=== PATIENT | female | born 1995 | race Caucasian/White ===

== ENCOUNTER 2017-04-19 08:59 | Emergency (ER) | payer BC, SELFPAY ==
[2017-04-19 09:27] VITALS: BP 133/76; PULSE 129; RESP 20; TEMP 38.6; O2SAT 95; BMI 36.6
--- NOTE | 2017-04-19 09:41 | HMH.EDUTC ---
[facility] [place] Impression: Influenza, Fever in adult Disposition: Home, Self-Care Condition on Discharge: Good Instructions: Influenza, DI for Fever (Symptom) -- Adult Additional Instructions: ? Start Tamiflu today if you are going to take it. Discussed risk and possible benefits. ? Lots of rest ? Increase Fluids water, Gatorade, powerade, pedialyte,if infant/toddler/child ? Alternate Tylenol and / or ibuprofen as discussed for fever, aches, chills x 24 hours without medication for symptoms ? Follow up IMMEDIATELY for new or worsening Symptoms OR no noticeable improvement over the next 48-72 hours, 911 for difficulty or breathing ? You or your child area contagious until no fever, aches, chills for 24 hours with medication for symptoms Prescriptions: Oseltamivir Phosphate [Tamiflu 75mg Capsule] 75 mg PO BID #10 cap Referrals: Dieter Rodriguez MD [Primary Care Provider] - Forms: Work/School Release Medical Decision Making Vital Signs: 04/19/17 09:27 Temperature 101.5 F H Temperature Source Temporal Artery Scan Pulse Rate [Right Brachial] 129 H Respiratory Rate 20 Blood Pressure [Right Arm] 133/76 Blood Pressure Mean [Right Arm] 95 Blood Pressure Source [Right Arm] Automatic Cuff Blood Pressure Position [Right Arm] Sitting 02 Sat by Pulse Oximetry 95 Oxygen Delivery Method Room Air - Lab Data Lab Results 04/19/17 09:14: Influenza Type A Ag Positive A, Influenza Type B Ag Negative, Strep Scn Rapid Clinic Negative Orders (Tests/Meds): ED MEDICATIONS Discontinued Medications Generic Name Dose Route Start Last Admin Trade Name Vetoq PRN Reason Stop Dose Admin Acetaminophen 650 mg 04/19/17 10:00 Acetaminophen 325mg Tab PO 04/19/17 10:01 ONCE ONE Ibuprofen 600 mg 04/19/17 09:35 04/19/17 09:57 Motrin 600mg Tablet PO 04/19/17 09:36 600 mg ONCE ONE Administration ORDERS Category Date Time Status Strep Screen Confirmation Stat Micro 04/19/17 09:14 Received - Adriel Inquiry Pt receiving controlled substance: No Adriel was queried for this patient: No - Reevaluation(s) Time: 10:05 (Patient temp still elevated after given Motrin Patient given Tylenol will re-evaluate) [facility] [place] - General Stated complaint: possible flu Mode of Arrival: Ambulatory Source of Information: Patient Limitations: No Limitations Description of Symptoms (Recalled from Triage Doc. by RN): PT C/O COUGH, CONGESTION, FEVER, BODYACHES, CHILLS HEENT Symptoms (Recalled from RN notes): No Resp Symptoms (Recalled from RN notes): Yes (COUGH AND CONGESTION) Skin Symptoms (Recalled from RN notes): No MS Symptoms (Recalled from RN notes): Yes (BODYACHES) Functional Status (Recalled from RN notes): N/A - History of Present Illness Provider Complaint: Patient state that she began having flu like symptoms yesterday State that she has been having body aches, fever, chills sore throat and over all not feeling well State that this morning she woke up and she felt worse so she came on in to get checked out - Related Data Home Medications Medication Instructions Recorded Confirmed Sertraline HCl [Zoloft 50mg tablet] 50 mg PO DAILY 04/19/17 04/19/17 Previous Rx's Medication Instructions Recorded Oseltamivir Phosphate [Tamiflu 75 mg PO BID #10 cap 04/19/17 75mg Capsule] Allergies Allergy/AdvReac Type Severity Reaction Status Date / Time No Known Allergies Allergy Verified 04/19/17 09:34 - Worker's Comp Is this a Worker's Comp case?: No [facility] History I have reviewed the patient's past medical history: Yes Other Surgeries: Yes: Other (wisdom teeth removed) - *Social History Smoking Status: Never smoker Alcohol Intake: never - Psychiatric History Expresses thoughts of harming self/others: None Suicide Plan Description: No Plan ROS Obtained: Yes All systems reviewed & no additional complaints - Constitutional Constitutional: Reports body ache, Reports c
--- NOTE | 2017-04-19 09:44 | ED_ITS ---
[facility] [place]: Influenza, Fever in adult Disposition: Home, Self-Care Condition on Discharge: Good Instructions: Influenza, DI for Fever (Symptom) -- Adult Additional Instructions: ? Start Tamiflu today if you are going to take it. Discussed risk and possible benefits. ? Lots of rest ? Increase Fluids water, Gatorade, powerade, pedialyte,if infant/toddler/child ? Alternate Tylenol and / or ibuprofen as discussed for fever, aches, chills x 24 hours without medication for symptoms ? Follow up IMMEDIATELY for new or worsening Symptoms OR no noticeable improvement over the next 48-72 hours, 911 for difficulty or breathing ? You or your child area contagious until no fever, aches, chills for 24 hours with medication for symptoms Prescriptions: Oseltamivir Phosphate [Tamiflu 75mg Capsule] 75 mg PO BID #10 cap Referrals: Dieter Rodriguez MD [Primary Care Provider] - Forms: Work/School Release Medical Decision Making Vital Signs: 04/19/17 09:27 Temperature 101.5 F H Temperature Source Temporal Artery Scan Pulse Rate [Right Brachial] 129 H Respiratory Rate 20 Blood Pressure [Right Arm] 133/76 Blood Pressure Mean [Right Arm] 95 Blood Pressure Source [Right Arm] Automatic Cuff Blood Pressure Position [Right Arm] Sitting 02 Sat by Pulse Oximetry 95 Oxygen Delivery Method Room Air - Lab Data Lab Results 04/19/17 09:14: Influenza Type A Ag Positive A, Influenza Type B Ag Negative, Strep Scn Rapid Clinic Negative Orders (Tests/Meds): ED MEDICATIONS Discontinued Medications Generic Name Dose Route Start Last Admin Trade Name Vetoq PRN Reason Stop Dose Admin Acetaminophen 650 mg 04/19/17 10:00 Acetaminophen 325mg Tab PO 04/19/17 10:01 ONCE ONE Ibuprofen 600 mg 04/19/17 09:35 04/19/17 09:57 Motrin 600mg Tablet PO 04/19/17 09:36 600 mg ONCE ONE Administration ORDERS Category Date Time Status Strep Screen Confirmation Stat Micro 04/19/17 09:14 Received - Adriel Inquiry Pt receiving controlled substance: No Adriel was queried for this patient: No - Reevaluation(s) Time: 10:05 (Patient temp still elevated after given Motrin Patient given Tylenol will re-evaluate) [facility] [place] - General Stated complaint: possible flu Mode of Arrival: Ambulatory Source of Information: Patient Limitations: No Limitations Description of Symptoms (Recalled from Triage Doc. by RN): PT C/O COUGH, CONGESTION, FEVER, BODYACHES, CHILLS HEENT Symptoms (Recalled from RN notes): No Resp Symptoms (Recalled from RN notes): Yes (COUGH AND CONGESTION) Skin Symptoms (Recalled from RN notes): No MS Symptoms (Recalled from RN notes): Yes (BODYACHES) Functional Status (Recalled from RN notes): N/A - History of Present Illness Provider Complaint: Patient state that she began having flu like symptoms yesterday State that she has been having body aches, fever, chills sore throat and over all not feeling well State that this morning she woke up and she felt worse so she came on in to get checked out - Related Data Home Medications Medication Instructions Recorded Confirmed Sertraline HCl [Zoloft 50mg tablet] 50 mg PO DAILY 04/19/17 04/19/17 Previous Rx's Medication Instructions Recorded Oseltam
[2017-04-19 09:45] LABS: UTC Influenza A Antigen Positive (Negative); UTC Influenza B Antigen Negative (Negative); UTC Strep Screen (Rapid) Negative (Negative)
== END 2017-04-19 10:18 | disposition home or self-care (01) ==
PROVIDERS: Emergency Provider Nurse Practitioner; PCP Family Medicine
DX: J10.1 Influenza due to other identified influenza virus with other respiratory manifestations (principal)
CPT/HCPCS: 87804; 87880; 99202

== ENCOUNTER 2017-06-20 08:03 | Emergency (ER) | payer BC, SELFPAY ==
[2017-06-20 08:04] VITALS: BP 161/86; PULSE 100; RESP 18; TEMP 36.8; O2SAT 97; BMI 37.8
--- NOTE | 2017-06-20 08:22 | HMH.EDGENADL ---
ED Disposition Clinical Impression: Cholecystitis with cholelithiasis Qualifiers: Cholelithiasis location: gallbladder Cholecystitis acuity: acute Biliary obstruction: without biliary obstruction Qualified Code(s): K80.00 - Calculus of gallbladder with acute cholecystitis without obstruction Disposition: Home, Self-Care Condition on Discharge: Good Instructions: Fat-Restricted Diet, DI for General Gallbladder Conditions Additional Instructions: Additional instructions for CONTROLLED SUBSTANCES: You have been prescribed a medication that is a controlled substance. Controlled substances include pain medications known as opiates and sedative nerve medications known as benzodiazepines. Some common opiates include: Codeine (such as Tylenol #3) Hydrocodone (Vicodin, Lortab, Lorcet, Republic) Oxycodone (Percocet, Percodan, Oxycodone, Oxy IR) Some common benzodiazepines include: Diazepam (Valium) Lorazepam (Ativan) Alprazolam (Xanax) Clonazepam (Klonopin) Oxazepam (Serax) All of these controlled substances are highly addictive and frequently abused. Misuse can and frequently does lead to addiction as well as overdose and . Medication should be stored in a locked cabinet or other secure storage unit. Do not store the medication in a motor vehicle. Short term supplies, 3 days or less, are prescribed because of the highly addictive nature of the medication. Any of the controlled substance medication NOT taken should be disposed of properly and NOT SAVED. The recommended method of disposing of unused medications is: Place the medicines in a sealable plastic bag. If the medicine is a solid, crush it or add water to dissolve it. Add something undesirable (cat litter, coffee grounds, etc.) Dispose of sealed bag in household trash Do not flush or pour unused medicines down a sink or drain. Controlled substances should not be shared, given away or sold. Because of the addictive nature and frequent abuse, these medications are sometimes stolen. These medications should be kept in a safe place where they cannot be stolen. Do not keep them in your car or purse. Lost or stolen prescriptions for controlled substances WILL NOT BE REFILLED in this emergency department, regardless of whether a police report was filed. Prescriptions: Hydrocod/Acet 5/325 mg [Republic 5/325mg tablet] 1 tab PO Q6HP PRN #10 tab PRN Reason: Pain levoFLOXacin [Levaquin 500mg tab] 500 mg PO DAILY #10 tab Referrals: Dieter Rodriguez MD [Primary Care Provider] - Raudel Alexandre MD [Staff Physician] - (tomorrow at 10 am, call today to confirm) - Critical Care Critical Care Time: No Attestation: On 06/20/17, the high probability of a clinically significant, sudden or life threatening deterioration of the following system(s) required my full and direct attention, intervention and personal management. The time I documented below is in addition to time spent performing reported procedures but includes the following listed in this critical care notation. Medical Decision Making - Adriel Inquiry Pt receiving controlled substance: Yes Adriel was queried for this patient: Yes Reference #:: [id number] Risks and benefits of using a controlled substance: were discussed with pt by me Comment: 0 rxs. Vital Signs: 06/20/17 08:04 Temperature 98.3 F Temperature Source Oral Pulse Rate [Right Brachial] 100 H Respiratory Rate 18 Blood Pressure [Right Arm] 161/86 Blood Pressure Mean [Right Arm] 111 Blood Pressure Source [Right Arm] Automatic Cuff Blood Pressure Position [Right Arm] Sitting 02 Sat by Pulse Oximetry 97 Oxygen Delivery Method Room Air - Lab Data Lab Results 06/20/17 08:35: Urine Color Yellow, Urine Appearance Sl cloudy, Urine pH 5.5, Ur Specific [place] >= 1.030, Urine Protein Negative, Urine Glucose (UA) Negative, Urine Ketones Negative, Urine Blood Trace-l, Urine Nitrate Negative, Urine Bilirubin Negative, Urine Urobilinogen 0.2, Ur L
--- NOTE | 2017-06-20 08:32 | CT_ITS ---
CT abdomen pelvis w con Ordering Physician: Pedro Cunningham MD Patient Age: 22 years: Female HISTORY: ITS.REASON: abdo pain Abdominal pain. Right upper quadrant pain. TECHNIQUE: Helical CT scanning of abdomen and pelvis following 35 cc [id number]. COMPARISON :Subsequent ultrasound FINDINGS Lung bases appear clear. The heart is normal in size. Abdomen. Liver, unremarkable. No biliary ductal dilatation Cholelithiasis. A 9 mm more densely calcified stone at the fundus of gallbladder. Numerous other smaller partially calcified stones and debris elsewhere at dependent gallbladder fundus of gallbladder. . Gallbladder is moderately distended 8.5 seem in length with with borderline wall thickening and question some very subtle hazy appearance thickness medial the gallbladder. Question reflecting early inflammation, early acute cholecystitis possibly. Pancreas. Normal size no focal lesions. No biliary ductal dilatation. Common duct normal diameter Kidneys. Normal enhancement. . Spleen. Borderline splenmegaly a nearly 13 cm AP and in length. Small bowel. Unremarkable. Large bowel. Minimal stool of stool most notable right colon. Terminal ileum unremarkable. Appendix normal. Pelvis. Uterus normal size but with generous endometrial stripe noted. Ovaries appear normal in size with right slightly larger than left.q nearly 4 cm maximum height x 1.8 cm. Osseous. Calcified posterior central disc bulge at T 11/12 incidentally noted. No osseous lesions. ====IMPRESSION====== 1. cholelithiasis. Numerous gallstones and debris is seen towards fundus. Borderline wall thickening. Gallbladder mildly dilated with. Question minor hazy appearance is medial the gallbladder could reflect some early inflammation equivocal: 2. Borderline/mild splenomegaly.
--- NOTE | 2017-06-20 08:33 | US_ITS ---
US gallbladder Ordering Physician: Pedro Cunningham MD Patient Age: 22 years: Female HISTORY: ITS.REASON: RUQ pain epigastric pain TECHNIQUE: Ultrasound right upper quadrant COMPARISON :CT from today FINDINGS Pancreas. Unremarkable. Head body and medial tail satisfactory. Liver. No focal lesion. No biliary ductal dilatation. Common duct appears normal diameter at the hilum of the liver. 3.7 mm. No intrahepatic ductal dilatation Gallbladder. Numerous shadowing gallstones. Prominent debris and sludge as well.. These are most evident towards the fundus the gallbladder. Gallbladder wall appears normal thickness by ultrasound. No pericholecystic fluid nor inflammation evident by ultrasound.. Gallbladder is is mildly distended but not tense, measuring 9 cm in length x 4 cm.. Right kidney. Unremarkable 11.3 similar length no hydronephrosis nor mass. IMPRESSION: 1. . Cholelithiasis. Numerous stones. Prominent sludge and debris . Gallbladder dilated somewhat distended measuring over 9.2 cm in length. However no significant wall thickening or additional inflammation evident by ultrasound 2. Common duct normal diameter.. 3.. Liver satisfactory with no intrahepatic ductal dilatation
--- NOTE | 2017-06-20 08:44 | PC.NURSE ---
notified rad of new orders
[2017-06-20 08:46] LABS: Microscopic, Urine URINE MICROSCOPIC (MICROSCOPIC)
[2017-06-20 08:52] LABS: Basophils % 0.2 % (0.1-2.0); Eosinophils # 0.1 K/mm3 (0.0-0.4); Eosinophils % 1.2 % (0.1-12.0); Hematocrit 44.2 % (37.0-47.0); Hemoglobin 14.5 g/dL (12.2-16.2); Lymphocytes # 1.8 K/mm3 (0.7-4.5); Lymphocytes % 16.1 K/mm3 (10-50); Mean Corpuscular HGB Conc 32.9 g/dL (31.8-35.4); Mean Corpuscular Hemoglobin 27.4 pg (27.0-31.2); Mean Corpuscular Volume 83.5 fl (81-99); Mean Platelet Volume 8.5 fl (7.4-10.4); Monocytes # 0.6 K/mm3 (0.1-1.0); Monocytes % 5.4 % (1.7-9.3); Neutrophils # 8.7 K/mm3 (1.8-7.8); Neutrophils % 77.1 % (37.0-80.0); Platelet Count 224 K/mm3 (142-424); Red Blood Count 5.29 M/mm3 (4.20-5.40); Red Cell Distribution Width 12.9 % (11.5-17.5); White Blood Count 11.3 K/mm3 (4.8-10.8)
[2017-06-20 08:53] LABS: Appearance,Urine SL CLOUDY (Clear); Blood, Urine TRACE-L (Negative); Color,Urine YELLOW (Yellow); Glucose,Urine (UA) Negative (Negative); Ketones,Urine Negative (Negative); Leukocyte Esterase,Urine Negative (Negative); Nitrate,Urine Negative (Negative); PH,Urine 5.5 (5.0-8.5); Protein,Urine Negative (Negative); Specific Gravity, Urine >= 1.030 (1.005-1.030); Urobilinogen,Urine 0.2 EU/dl (0.2)
[2017-06-20 09:01] LABS: Bilirubin,Urine Negative (Negative)
[2017-06-20 09:06] LABS: Alanine Aminotransferase 24 U/L (12-78); Albumin Level 4.1 gm/dL (3.4-5.0); Alkaline Phosphatase 63 U/L (46-116); Anion Gap 13.7 mEq/L (5-15); Aspartate Amino Transferase 10 U/L (15-37); Bilirubin,Total 0.4 mg/dL (0.2-1.0); Blood Urea Nitrogen 7 mg/dL (7-18); Carbon Dioxide 25 mmol/L (21.0-32.0); Chloride 105 mmol/L (98-107); Creatinine Clearance Estimated 186 mL/min (0-300); Creatinine,Serum 0.74 mg/dL (0.55-1.02); Estimated Glomerular Filt Rate 97 ml/min (>60); GFR (African American) 118 ML/MIN (>60); Globulin 4.1 gm/dl (1.3-3.2); Glucose 109 mg/dL (74-106); Potassium 3.7 mmoL/L (3.5-5.1); Sodium 140 mmol/L (136-145); Total Protein,Serum 8.2 gm/dL (6.4-8.2)
[2017-06-20 09:09] LABS: Bacteria,Urine 1+ /lpf; Mucus,Urine 1+ /lpf; RBC,Urine Occasional #/hpf (0-3); Squamous Epithelial Cell,Urine 20-50 #/hpf (0-5); Urine Pregnancy, HCG Qual. Negative (Negative)
[2017-06-20 09:14] LABS: Lipase 73 u/L (73-393)
[2017-06-20 10:34] VITALS: BP 139/85; PULSE 84; RESP 18; O2SAT 98
[2017-06-20 12:14] VITALS: BP 129/74; PULSE 67; RESP 18; TEMP 36.8; O2SAT 97
== END 2017-06-20 12:18 | disposition home or self-care (01) ==
PROVIDERS: Emergency Provider Emergency Medicine; PCP Family Medicine
DX: K80.00 Calculus of gallbladder with acute cholecystitis without obstruction (principal); R10.13 Epigastric pain; R19.7 Diarrhea, unspecified
CPT/HCPCS: 74177; 76705; 80053; 81001; 81025; 83690; 85025; 96365; 96366; 96374; 96375; 99283; J1956; Q9967

== ENCOUNTER 2017-06-26 09:06 | Day surgery (SDC) | payer BC, SELFPAY ==
[2017-06-21 14:13] VITALS: BMI 37.8
[2017-06-26] VITALS (9 sets, daily range): BP systolic 101–140; BP diastolic 41–84; PULSE 69–103; RESP 16–20; TEMP 36.3–43; O2SAT 93–99
--- NOTE | 2017-06-26 09:42 | HMH.ANESCL ---
[facility] Anesthesia Checklist - Patient Identification Patient Identification: Arm Band, Verbal (Name & ) - Structural Data Admitted From: Home Planned Operative Procedure/s: lap choly Consent for Planned Operative Procedure(s) Verified: Yes Verified Documents: Surgical Consent, History and Physical - NPO Status Verified Time NPO: 00:00 - Chart Verification Results Verified: CBC, BMP - Additional verifications Patient : No Anesthesia Reactions: No Hx Blood Transfusions: No Blood Transfusion Reaction: No Cephalosporin Allergy: No Previous Colonoscopy: No - Cardiovascular Assessment Heart Sounds: S1 & S2 Pulse Strength: Baseline Pulse Rhythm: Regular Peripheral Edema: No - Airway Assessment C-Spine Mobility Assessed: Yes TMJ Mobility Assessed: Yes Dentition: Good Dentition - Neurological Assessment Level of Consciousness: Awake, Alert, Appropriate Hx Seizures: No Numbness or tingling in extremities: No - Anesthesia Plan Anesthesia Risk discussed: Yes Anesthesia Plan: Verified ASA Class: I Anesthesia Type: General [facility] Anesthesia HX I have reviewed the patient's past medical history: Yes Medical History: Reports:: Anxiety Denies:: Cancer, Diabetes Mellitus Type 1, Diabetes Mellitus Type 2, MRSA, Seizures Other Medical History: Denies: Blood Transfusion Reaction Other Surgeries: Yes: No Previous Surgery, Other Amputation: No Fractures: No *Family Hx:: Cancer, Heart Attack, Hyperlipidemia, Hypertension
--- NOTE | 2017-06-26 12:36 | HMH.OPNOTE ---
Date of procedure: 06/26/17 Pre-op Diagnosis:: Symptomatic gallstones, cholecystitis with cholelithiasis. Post-op Diagnosis:: Same Procedure performed:: Laparoscopic cholecystectomy Surgeon:: Raudel Alexandre MD FEED MANAGER:: Marino Ayon Anesthesia: SUZIE Estimated blood loss (mL): 75 Clinical Note:: Patient is a 22-year-old white female who had presented to the office last week with a 6 day history of intermittent epigastric and right upper quadrant pain with some associated low-grade fevers. She had not had any nausea. Symptoms were not related to any food intake. She presented to the emergency department the day before seen in the office blood work at that time was relatively unremarkable. CT scan revealed findings of gallstones with sludge. The options were discussed with the patient. It was felt that most assuredly her symptoms are secondary to gallbladder. Surgery was offered as early as the following morning however due to the patient's schedule she elected for surgery the following week. Operative findings:: Patient had a markedly thickened significantly inflamed tense gallbladder with apparent stone impacted at the junction of the neck of the bladder and proximal cystic duct of the gallbladder. She had a hydropic gallbladder. Gallbladder was partially intrahepatic. Operative note:: Consent was obtained and patient was taken the operating room. She was given antibiotics. She was positioned in the supine position and general anesthesia was used via endotracheal tube. Abdomen was prepped and draped in the standard surgical fashion. Subumbilical skin incision was made. Attempt was made for achievement of CO2 pneumoperitoneum by inserting Veress needle however good insufflation pressures could not be achieved. After several unsuccessful passes of the Veress needle through a 1 mm left subcostal incision Veress needle was inserted. CO2 pneumoperitoneum was achieved 15 mmHg. 10/11 mm optical trocar was inserted at the umbilicus. Intraperitoneal contents were visualized. She was positioned in reverse Trendelenburg and left side down. A couple of 5 mm trochars were inserted in the right upper abdomen. 10 mm trocar was inserted in the epigastrium. Gallbladder was identified to be distended and tense. It was grasped and retracted anteriorly and superiorly over the dome of the liver. For visualization 0? laparoscope was replaced with the angled laparoscope. There appeared to be significant inflammatory response around the neck of the gallbladder. Blunt dissection was carried out and there appeared to be a stone impacted at the neck of the gallbladder where it tapers into the cystic duct. Ultimately the cystic duct was dissected free and isolated. Cystic duct was multiply clipped and then divided. Cystic artery was coagulated with Scott ultrasonic harmonic sierra and divided. Gallbladder was dissected free from the liver in a retrograde fashion using Scott ultrasonic harmonic sierra. Gallbladder was partially intrahepatic and there was some minor parenchymal trauma to the liver. Gallbladder was placed within an Endo Catch retrieval device removed from the peritoneal cavity via the umbilical trocar site which required some extension of the fascial incision for delivery. Gallbladder fossa was then irrigated. Hemostasis was achieved with moderately liberal use of electrocautery on the gallbladder fossa. There is good hemostasis. Gallbladder fossa and perihepatic space were irrigated and aspirated until clear with several liters of warm saline. Trochars were then removed as CO2 pneumoperitoneum was evacuated. Fascia at the umbilicus was closed with a couple of interrupted 0 Vicryl sutures. Local anesthetic was infiltrated. Skin incisions were closed with 4-0 Monocryl in a subcuticular fashion. Steri-Strips and clean dry sterile dressings were applied. Condition: stable Disposition: PACU Specimens:: Gallbladder and contents Compli
--- NOTE | 2017-06-26 12:42 | P.OP_ITS ---
Date of procedure: 06/26/17 Pre-op Diagnosis:: Symptomatic gallstones, cholecystitis with cholelithiasis. Post-op Diagnosis:: Same Procedure performed:: Laparoscopic cholecystectomy Surgeon:: Raudel Alexandre MD COMBAT RIFLE CREWMEMBER:: Marino Ayon Anesthesia: SUZIE Estimated blood loss (mL): 75 Clinical Note:: Patient is a 22-year-old white female who had presented to the office last week with a 6 day history of intermittent epigastric and right upper quadrant pain with some associated low-grade fevers. She had not had any nausea. Symptoms were not related to any food intake. She presented to the emergency department the day before seen in the office blood work at that time was relatively unremarkable. CT scan revealed findings of gallstones with sludge. The options were discussed with the patient. It was felt that most assuredly her symptoms are secondary to gallbladder. Surgery was offered as early as the following morning however due to the patient's schedule she elected for surgery the following week. Operative findings:: Patient had a markedly thickened significantly inflamed tense gallbladder with apparent stone impacted at the junction of the neck of the bladder and proximal cystic duct of the gallbladder. She had a hydropic gallbladder. Gallbladder was partially intrahepatic. Operative note:: Consent was obtained and patient was taken the operating room. She was given antibiotics. She was positioned in the supine position and general anesthesia was used via endotracheal tube. Abdomen was prepped and draped in the standard surgical fashion. Subumbilical skin incision was made. Attempt was made for achievement of CO2 pneumoperitoneum by inserting Veress needle however good insufflation pressures could not be achieved. After several unsuccessful passes of the Veress needle through a 1 mm left subcostal incision Veress needle was inserted. CO2 pneumoperitoneum was achieved 15 mmHg. 10/11 mm optical trocar was inserted at the umbilicus. Intraperitoneal contents were visualized. She was positioned in reverse Trendelenburg and left side down. A couple of 5 mm trochars were inserted in the right upper abdomen. 10 mm trocar was inserted in the epigastrium. Gallbladder was identified to be distended and tense. It was grasped and retracted anteriorly and superiorly over the dome of the liver. For visualization 0? laparoscope was replaced with the angled laparoscope. There appeared to be significant inflammatory response around the neck of the gallbladder. Blunt dissection was carried out and there appeared to be a stone impacted at the neck of the gallbladder where it tapers into the cystic duct. Ultimately the cystic duct was dissected free and isolated. Cystic duct was multiply clipped and then divided. Cystic artery was coagulated with Scott ultrasonic harmonic sierra and divided. Gallbladder was dissected free from the liver in a retrograde fashion using Scott ultrasonic harmonic sierra. Gallbladder was partially intrahepatic and there was some minor parenchymal trauma to the liver. Gallbladder was placed within an Endo Catch retrieval device removed from the peritoneal cavity via the umbilical trocar site which required some extension of the fascial incision for delivery. Gallbladder fossa was then irrigated. Hemostasis was achieved with moderately liberal use of electrocautery on the gallbladder fossa. There is good hemostasis. Gallbladder fossa and perihepatic space were irrigated and aspirated until clear with several liters of warm saline. Trochars were then removed as CO2 pneumoperitoneum was evacuated. Fascia at the umbilicus was closed with a couple of interrupted 0 Vicryl sutures. Local anesth
--- NOTE | 2017-06-26 12:43 | P.PN_ITS ---
[facility] Anesthesia Record Part I Intake, IV Amount: 800 Estimated blood loss (mL): 25 Urine output (mL): 0 Blood Products used (#): none Blood Pressure: 138/72 SaO2: 93 Pulse Rate: 103 Respiratory Rate: 18 Temperature: 97.8 F Patient is:: Drowsy, Stable Stable to PACU at:: 12:42
--- NOTE | 2017-06-26 12:43 | HMH.ANESII ---
[facility] Anesthesia Record Part II Discharge Time: 13:12 Destination: Surgical Day Care (OP Surgery) PACU nurse assessment reviewed?: Yes Patient Condition:: Good Anesthesia Complications:: None
--- NOTE | 2017-06-26 13:18 | PC.NURSE ---
1310-detailed report called to DanielaRN 1312-Pt transported to post op via stretcher w/rails up and left in care of ABNER Roger. Detailed report given at bedside. VSS. Pt stable.
== END 2017-06-26 13:57 | disposition home or self-care (01) ==
PROVIDERS: PCP Family Medicine; Visit Provider Surgery
PROC: 0FT44ZZ Resection of Gallbladder, Percutaneous Endoscopic Approach (ICD-10-PCS; CPT 47562; principal; 2017-06-26 11:00)
DX: K80.01 Calculus of gallbladder with acute cholecystitis with obstruction (principal)
CPT/HCPCS: 47562; 96374; J0131; J2405; J2710

== ENCOUNTER → 2017-10-19 10:52 | Outpatient (CLI) | payer BC, SELFPAY ==
[2017-10-19 11:30] LABS: Basophils % 0.3 % (0.1-2.0); Eosinophils # 0.2 K/mm3 (0.0-0.4); Eosinophils % 1.9 % (0.1-12.0); Hematocrit 42.9 % (37.0-47.0); Hemoglobin 13.1 g/dL (12.2-16.2); Lymphocytes # 1.8 K/mm3 (0.7-4.5); Lymphocytes % 21.4 K/mm3 (10-50); Mean Corpuscular HGB Conc 30.5 g/dL (31.8-35.4); Mean Corpuscular Hemoglobin 25.9 pg (27.0-31.2); Mean Corpuscular Volume 84.9 fl (81-99); Mean Platelet Volume 8.9 fl (7.4-10.4); Monocytes # 0.5 K/mm3 (0.1-1.0); Monocytes % 5.3 % (1.7-9.3); Neutrophils % 71.1 % (37.0-80.0); Platelet Count 220 K/mm3 (142-424); Red Blood Count 5.06 M/mm3 (4.20-5.40); Red Cell Distribution Width 13.4 % (11.5-17.5); White Blood Count 8.5 K/mm3 (4.8-10.8)
[2017-10-19 13:22] LABS: Alanine Aminotransferase 36 U/L (12-78); Albumin Level 3.7 gm/dL (3.4-5.0); Albumin/Globulin Ratio 1.2 (1.1-1.8); Alkaline Phosphatase 55 U/L (46-116); Anion Gap 15.1 mEq/L (5-15); Aspartate Amino Transferase 19 U/L (15-37); Bilirubin,Total 0.4 mg/dL (0.2-1.0); Blood Urea Nitrogen 7 mg/dL (7-18); Calcium 9.2 mg/dL (8.5-10.1); Carbon Dioxide 23 mmol/L (21.0-32.0); Chloride 108 mmol/L (98-107); Creatinine,Serum 0.66 mg/dL (0.55-1.02); Estimated Glomerular Filt Rate 111 ml/min (>60); GFR (African American) 134 ML/MIN (>60); Globulin 3.2 gm/dl (1.3-3.2); Glucose 99 mg/dL (74-106); HCG,Quantitative 1660 mIU/mL; Potassium 4.1 mmoL/L (3.5-5.1); Sodium 142 mmol/L (136-145); Total Protein,Serum 6.9 gm/dL (6.4-8.2)
== END ==
PROVIDERS: Visit Provider Specialist
DX: O00.119 Unspecified tubal pregnancy with intrauterine pregnancy (principal)
CPT/HCPCS: 36415; 80053; 84702; 85025

== ENCOUNTER → 2017-10-26 11:07 | Outpatient (CLI) | payer BC, SELFPAY ==
[2017-10-26 12:09] LABS: HCG,Quantitative 1675 mIU/mL
== END ==
PROVIDERS: Visit Provider Specialist
DX: O00.90 Unspecified ectopic pregnancy without intrauterine pregnancy (principal)
CPT/HCPCS: 36415; 84702

== ENCOUNTER → 2017-11-06 09:29 | Outpatient (CLI) | payer BC, SELFPAY ==
[2017-11-06 09:56] LABS: HCG,Quantitative 29 mIU/mL
== END ==
PROVIDERS: Visit Provider Specialist
DX: Z32.00 Encounter for pregnancy test, result unknown (principal)
CPT/HCPCS: 36415; 84702

== ENCOUNTER → 2017-11-24 13:51 | Outpatient (CLI) | payer BC, SELFPAY ==
[2017-11-24 14:50] LABS: HCG,Quantitative 0 mIU/mL
== END ==
PROVIDERS: Visit Provider Specialist
DX: Z32.00 Encounter for pregnancy test, result unknown (principal); O00.109 Unspecified tubal pregnancy without intrauterine pregnancy
CPT/HCPCS: 36415; 84702

== ENCOUNTER → 2017-12-04 12:11 | Outpatient (CLI) | payer BC, SELFPAY ==
[2017-12-04 12:51] LABS: HCG,Quantitative 0 mIU/mL
== END ==
PROVIDERS: PCP Nurse Practitioner; Visit Provider Specialist
DX: Z32.00 Encounter for pregnancy test, result unknown (principal)
CPT/HCPCS: 36415; 84702

== ENCOUNTER → 2018-02-02 08:54 | Outpatient (CLI) | payer BC, SELFPAY ==
[2018-02-02 11:33] LABS: HCG,Quantitative 0 mIU/mL
== END ==
PROVIDERS: PCP Family Medicine; Visit Provider Specialist
DX: Z32.00 Encounter for pregnancy test, result unknown (principal)
CPT/HCPCS: 36415; 84702

== ENCOUNTER → 2018-07-20 09:48 | Outpatient (CLI) | payer BC, SELFPAY ==
[2018-07-20 10:41] LABS: HCG,Quantitative 16 mIU/mL
== END ==
PROVIDERS: Visit Provider Specialist
DX: Z32.00 Encounter for pregnancy test, result unknown (principal)
CPT/HCPCS: 36415; 84702

== ENCOUNTER → 2018-07-24 11:56 | Outpatient (CLI) | payer BC, SELFPAY ==
[2018-07-24 12:21] LABS: HCG,Quantitative 173 mIU/mL
== END ==
PROVIDERS: Visit Provider Specialist
DX: Z32.00 Encounter for pregnancy test, result unknown (principal)
CPT/HCPCS: 36415; 84702

== ENCOUNTER → 2018-07-30 13:58 | Outpatient (CLI) | payer BC, SELFPAY ==
[2018-07-30 15:21] LABS: HCG,Quantitative 2318 mIU/mL
== END ==
PROVIDERS: Visit Provider Specialist
DX: Z32.00 Encounter for pregnancy test, result unknown (principal)
CPT/HCPCS: 36415; 84702

== ENCOUNTER 2019-03-26 22:45 | Inpatient (IN) ==
[2019-03-26 23:10] LABS: Microscopic, Urine URINE MICROSCOPIC (MICROSCOPIC)
[2019-03-26 23:13] LABS: Appearance,Urine CLEAR (Clear); Bilirubin,Urine Negative (Negative); Blood, Urine 3+ (Negative); Color,Urine YELLOW (Yellow); Glucose,Urine (UA) Negative (Negative); Ketones,Urine Negative (Negative); Leukocyte Esterase,Urine Negative (Negative); PH,Urine 6.5 (5.0-8.5); Protein,Urine Negative (Negative); Specific Gravity, Urine 1.015 (1.005-1.030); Urobilinogen,Urine 0.2 EU/dl (0.2)
[2019-03-26 23:19] LABS: Amphetamine/Metha Screen,Urine Negative ng/mL (<1000); Barbiturates Screen,Urine Negative ng/mL (<200); Benzodiazepines Screen,Urine Negative ng/mL (<200); Cannabinoid Screen,Urine Negative ng/mL (<50); Cocaine Screen,Urine Negative ng/mL (<300); Methadone Screen,Urine Negative ng/mL (<300); Opiate Screen,Urine Negative ng/mL (<300); Phencyclidine Screen,Urine Negative ng/mL (<25)
[2019-03-26 23:33] LABS: Bacteria,Urine Trace /lpf; WBC,Urine Occasional #/hpf (0-3)
[2019-03-27 06:48] LABS: Basophils % 0.1 % (0.1-2.0); Eosinophils % 0.2 % (0.1-12.0); Hematocrit 36.7 % (37.0-47.0); Lymphocytes # 1.2 K/mm3 (0.7-4.5); Mean Corpuscular HGB Conc 35.5 g/dL (31.8-35.4); Mean Corpuscular Volume 83.1 fl (81-99); Mean Platelet Volume 10.2 fl (7.4-10.4); Monocytes # 0.5 K/mm3 (0.1-1.0); Monocytes % 3.9 % (1.7-9.3); Neutrophils # 11.4 K/mm3 (1.8-7.8); Neutrophils % 86.8 % (37.0-80.0); Platelet Count 175 K/mm3 (142-424); Red Blood Count 4.41 M/mm3 (4.20-5.40); Red Cell Distribution Width 13.3 % (11.5-17.5); White Blood Count 13.1 K/mm3 (4.8-10.8)
[2019-03-27 07:08] LABS: Anion Gap 15.7 mEq/L (5-15); Calcium 8.8 mg/dL (8.5-10.1)
[2019-03-27 08:08] LABS: Lymphocytes % 2 % (10-50); Monocytes % 3 % (2-9); Neutrophils % 95 % (42-76); Total Cells Counted 100
[2019-03-27 08:09] LABS: RBC Morphology Normal
--- NOTE | 2019-03-27 08:36 | Progress Note ---
[facility] Anesthesia Checklist - Patient Identification Patient Identification: Arm Band - Structural Data Admitted From: Home Planned Operative Procedure/s: labor epidural Consent for Planned Operative Procedure(s) Verified: Yes Verified Documents: Surgical Consent, History and Physical - NPO Status Verified Time NPO: 00:00 - Additional verifications Anesthesia Reactions: No Hx Blood Transfusions: No Blood Transfusion Reaction: No - Airway Assessment C-Spine Mobility Assessed: Yes TMJ Mobility Assessed: Yes Dentition: Good Dentition - Neurological Assessment Level of Consciousness: Awake, Alert - Anesthesia Plan Anesthesia Risk discussed: Yes Anesthesia Plan: Verified ASA Class: II Anesthesia Type: Epidural [facility] History I have reviewed the patient's past medical history: Yes Medical History: Reports:: Anxiety Denies:: Cancer, Diabetes Mellitus Type 1, Diabetes Mellitus Type 2, Hypertension, MRSA, Seizures *Have you ever received a pneumonia vaccine?: No *Have you received a flu vaccine this season?: Yes Other Medical History: Denies: Blood Transfusion Reaction Anesthesia experience/problems:: nac Laterality Cases: Bilateral: Other Other Surgeries: Yes: Cholecystectomy, Other. No: Amputation: No Fractures: No - *Social History Smoking Status: Never smoker Alcohol Intake: never Alcohol Intake Frequency:: other Substance Use Type: denies use *Occupational Status:: unemployed Housing: house Household Members: spouse *Travel in the last 8 weeks: None - Psychiatric History Pschychiatric History:: Reports:: Anxiety Family Hx:: Cancer, Heart Attack, Hyperlipidemia, Hypertension Para: 0
--- NOTE | 2019-03-27 18:59 | History & Physical Report ---
OB - H&P: HPI Antepartum - History of Present Illness Chief complaint: contractions History of present illness: 24 yo G1 at 39 wks presented with c/o contractions care in [place] During evaluation, cervix was 1 cm and no signs of active labor, but several late and variable heart rate decelerations were noted and mother was admitted for observation. During the night, she continued to contract, and began to change her cervix, with signs of active labor. records were obtained and reviewed. [facility] History I have reviewed the patient's past medical history: Yes Medical History: Reports:: Anxiety Denies:: Cancer, Diabetes Mellitus Type 1, Diabetes Mellitus Type 2, Hypertension, MRSA, Seizures *Have you ever received a pneumonia vaccine?: No *Have you received a flu vaccine this season?: Yes Other Medical History: Denies: Blood Transfusion Reaction Anesthesia experience/problems:: nac Laterality Cases: Bilateral: Other Other Surgeries: Yes: No Previous Surgery, Cholecystectomy, Other. No: C- section Amputation: No Fractures: No - *Social History Smoking Status: Never smoker Alcohol Intake: never Alcohol Intake Frequency:: other Substance Use Type: denies use *Occupational Status:: unemployed Housing: house Household Members: spouse *Travel in the last 8 weeks: None - Psychiatric History Pschychiatric History:: Reports:: Anxiety Family Hx:: Cancer, Heart Attack, Hyperlipidemia, Hypertension Para: 0 Review of Systems - Review of Systems CONSTITUTIONAL: no fever/chills HEENT: no oral lesions PULMONARY: no shortness of breath or difficulty breathing CV: no racing heart, palpitations or chest pain ABD: no abdominal pain, N/V : irregular contractions SKIN: no new rash or skin lesions EXT: no edema NEURO: no mental status changes PSYCH: no current anxiety/depression OB: normal movement Meds Home Medications Medication Instructions Recorded Confirmed Type No Known Home Medications 03/27/19 03/27/19 History Allergies Allergy/AdvReac Type Severity Reaction Status Date / Time No Known Allergies Allergy Verified 01/07/18 12:23 OB - H&P: Exam - Physical Exam Vital signs: Temp Pulse Resp BP Pulse Ox 99.1 F 85 18 131/72 99 03/27/19 15:44 03/27/19 15:44 03/27/19 15:44 03/27/19 15:44 03/27/19 07:13 Narrative: CONSTITUTIONAL: no acute distress HEENT: mucous membranes moist PULMONARY: breathing unlabored without audible wheezes CV: no tachycardia or visible JVD; normal LE peripheral pulses ABD: soft, NT/ND, no guarding. Gravid uterus. : cervix 4/50/-2 SKIN: no visible rash or lesions HEME: no lymphadenopathy EXT: 1+ edema LEs NEURO: alert/oriented, no altered mental status PSYCH: appropriate mood and demeanor without visible anxiety/depression NST: Basline: 140 Variability: moderate Accelerations: yes Decelerations: occasional variable and late decelerations OB - Results - Labs Labs: Short CBC 03/27/19 Range/Units 06:24 WBC 13.1 H (4.8-10.8) K/mm3 Hgb 13.0 (12.2-16.2) g/dL Hct 36.7 L (37.0-47.0) % Plt Count 175 (142-424) K/mm3 BMP 03/27/19 06:24 Sodium 136 Potassium 3.7 Chloride 102 Carbon Dioxide 22 BUN 7 Creatinine 0.64 Glucose 88 Calcium 8.8 Urine 03/26/19 Range/Units 23:00 Urine Color Yellow (Yellow) Urine Appearance Clear (Clear) Urine pH 6.5 (5.0-8.5) Ur Specific [place] 1.015 (1.005-1.030) Urine Protein Negative (Negative) Urine Glucose (UA) Negative (Negative) OB - A/P Antepartum (1) 39 weeks gestation of Current visit: Yes Status: Acute (2) with care elsewhere Current visit: Yes Status: Acute (3) Active labor Current visit: Yes Status: Acute (4) Late deceleration of heart rate Current visit: Yes Status: Acute - Additional Plan Additional Information:: Admitted for labor Epidural at patient request Continuous monitoring Anticipate
--- NOTE | 2019-03-27 19:02 | Progress Note ---
Labor Note - Subjective: Date: 03/27/19 Time: 11:01 Comment:: regular contractions comfortable with epidural AROM with clear fluid IUPC and FSE placed without difficulty Cervix 4-5/70/-2 NST reassuring with no late decelerations Plan: continue labor management will start pitocin augmentation - Assessment: Patient Problems: All Active Problems Late deceleration of heart rate (Acute) Active labor (Acute) with care elsewhere (Acute) 39 weeks gestation of (Acute) Influenza (Acute) Fever in adult (Acute) Cholecystitis with cholelithiasis (Acute) Right anterior knee pain (Acute) Swelling of right knee joint (Acute) Vaginal bleeding (Acute) Positive test (Acute) Rash (Acute) Sunburn (Acute) Inflammation (Acute)
--- NOTE | 2019-03-27 19:05 | Procedure Note ---
- Delivery Note Delivery Date:: 03/27/19 Delivery Time:: 18:21 Anesthesia Type: Epidural Was labor medically induced?: No Gestational age (weeks): 39 Infant delivered prior to 39 weeks?: No Gender: Male at 1 minute: 7 at 5 minutes: 8 Delivery Procedure:: Spontaneous vaginal delivery of liveborn male infant over intact perineum. Delivery uncomplicated No nuchal cord or shoulder dystocia with delivery Infant placed in RAGHU with mother immediately after umbilical cord clamped/cut, with standard nursing assessment performed Infant Apgars: 7 & 8 Placenta spontaneously expressed and examined; noted to be complete/intact. Vulva, vagina, and cervix inspected; first degree laceration repaired with 2-0 vicryl EBL: 400 cc All sponge/needle/instrument counts correct at conclusion of procedure Disposition: Mom/baby stable to recovery in [facility] Pl[facility]ental Delivery Description: Spontaneous
[2019-03-28 07:05] LABS: Hematocrit 29.1 % (37.0-47.0); Hemoglobin 10.1 g/dL (12.2-16.2)
--- NOTE | 2019-03-28 17:14 | Progress Note ---
Internal Medicine - PN: Subj *Date: 03/28/19 *Time: 17:10 Interval history: PPD #1 No unusual complaints lochia less than menses pain control sufficient Exam Vital signs and Labs for Last 24 Hours: Temp Pulse Resp BP Pulse Ox 99.1 F 85 18 131/72 99 03/27/19 15:44 03/27/19 15:44 03/27/19 15:44 03/27/19 15:44 03/27/19 07:13 Laboratory Results - last 24 hr 03/28/19 06:40: Hgb 10.1 L, Hct 29.1 L 03/28/19 06:40: Blood Type O Negative, Antibody Screen Negative, Screen Negative, Baby's Rh Status Positive I & O for Last 24 hours: Intake & Output 03/26/19 03/27/19 03/28/19 03/29/19 11:59 11:59 11:59 11:59 Weight 224 lb 13.367 oz Narrative: CONSTITUTIONAL: no acute distress HEENT: mucous membranes moist PULMONARY: breathing unlabored without audible wheezes CV: no tachycardia or visible JVD; normal LE peripheral pulses ABD: soft, NT/ND, no guarding : fundus firm at/below umbilicus SKIN: no visible rash or lesions EXT: 1+ edema LEs NEURO: alert/oriented, no altered mental status PSYCH: appropriate mood and demeanor without visible anxiety/depression Assessment and Plan (1) 39 weeks gestation of Current visit: Yes Status: Acute Category: Medical Code(s): Z3A.39 - 39 weeks gestation of (2) with care elsewhere Current visit: Yes Status: Acute Category: Medical Code(s): Z34.90 - Encounter for supervision of normal , unspecified, unspecified t rimester (3) Active labor Current visit: Yes Status: Acute Category: Medical (4) Late deceleration of heart rate Current visit: Yes Status: Acute Category: Medical Code(s): O36.8390 - Maternal care for abnormalities of the heart rate or rhythm, unspecified trimester, not applicable or unspecified - Assessment and plan all Dx Assessment and Plan for all problems:: Routine care Discharge home tomorrow
[2019-03-29 09:32] VITALS: BP 104/56
--- NOTE | 2019-03-29 10:39 | Discharge Summary ---
General - General Admission date:: 03/27/19 Discharge date: 03/29/19 HPI HPI: PPD #2 no new complaints ready for discharge Hospital Course Hospital Course: normal course uneventful ambulating and voiding without difficulty tolerating a regular diet declines pain meds at time of discharge Objective Vital signs: Temp Pulse Resp BP Pulse Ox 97.8 F 77 18 104/56 L 99 03/29/19 09:00 03/29/19 09:00 03/29/19 09:00 03/29/19 09:00 03/27/19 07:13 Narrative: CONSTITUTIONAL: no acute distress HEENT: mucous membranes moist PULMONARY: breathing unlabored without audible wheezes CV: no tachycardia or visible JVD; normal LE peripheral pulses ABD: soft, NT/ND, no guarding : fundus firm at/below umbilicus SKIN: no visible rash or lesions EXT: 1+ edema LEs NEURO: alert/oriented, no altered mental status PSYCH: appropriate mood and demeanor without visible anxiety/depression Results Labs on day of discharge: Labs from last 24 hours 03/29/19 03/28/19 01:10 06:40 Blood Type O Negative Antibody Screen Negative Screen Negative Baby's Rh Status Positive Rhogam Infusion Rhogam release DS: Diagnosis - Discharge Diagnosis (1) 39 weeks gestation of Status: Acute (2) with care elsewhere Status: Acute (3) Active labor Status: Acute (4) Late deceleration of heart rate Status: Acute Discharge Plan - Patient Discharge Instructions ACTIVITY: Continue current activity DIET: regular diet Additional Instructions: NOTHING IN VAGINA FOR 6 WEEKS. NO HEAVY LIFTING OR STRAINING. Patient Instructions: Depression, Hemorrhage, DI for Labor and Delivery, Vaginal , DI for and Nipple Soreness - Follow up Plan Follow up with: Lucy Holland MD [Staff Physician] - 04/17/19 10:45 am Disposition: Home, Self-Care Prescriptions/Medication Reconciliation: New Ibuprofen [Motrin 400mg tablet] 800 mg PO Q6HP PRN tablet PRN Reason: Mild To Moderate Pain - Problem Reconciliation Problems Reviewed?: Yes
== END 2019-03-29 10:55 | disposition home or self-care (01) | DRG 807 ==
LOC: OBOUT 22:45 → OB 22:46
PROVIDERS: ADMIT Obstetrics & Gynecology; ATTEND Obstetrics & Gynecology
CPT/HCPCS: 36415; 59025; 80048; 80305; 81001; 85007; 85014; 85018; 85025; 85461; 86850; 86870; 96360; C1758; J2790

== ENCOUNTER 2021-10-01 11:22 | Emergency (ER) | payer BC, SELFPAY ==
[2021-10-01 11:35] VITALS: BP 131/86; PULSE 101; RESP 20; TEMP 37.2; O2SAT 97; BMI 35.6
[2021-10-01 11:46] LABS: Adenovirus,PCR Not Detected (NotDetected); Bordetella Pertussis Not Detected (NotDetected); Chlamydophila Pneumoniae, PCR Not Detected (NotDetected); Coronavirus 229E Not Detected (NotDetected); Coronavirus NL63 Not Detected (NotDetected); Coronavirus OC43 Not Detected (NotDetected); Coronovirus HKU1,PCR Not Detected (NotDetected); Human Metapneumovirus Not Detected (NotDetected); Influenza A, PCR Not Detected (NotDetected); Influenza AH1, 2009 Not Detected (NotDetected); Influenza AH1, PCR Not Detected (NotDetected); Influenza AH3,PCR Not Detected (NotDetected); Influenza B, PCR Not Detected (NotDetected); Mycoplasma Pneumoniae, PCR Not Detected (NotDetected); Parainfluenza 1, PCR Not Detected (NotDetected); Parainfluenza 2, PCR Not Detected (NotDetected); Parainfluenza 3, PCR Not Detected (NotDetected); Parainfluenza 4, PCR Not Detected (NotDetected); Respiratory Syncytial Virus Not Detected (NotDetected); Rhinovirus/Enterovirus Not Detected (NotDetected)
--- NOTE | 2021-10-01 11:48 | HMH.EDUTC ---
[facility] [place] [facility] [place] Clinical Impression: Otitis media Qualifiers: Otitis media type: unspecified Laterality: left Qualified Code(s): H66.92 - Otitis media, unspecified, left ear Disposition: Home, Self-Care Condition on Discharge: Good Instructions: Sinusitis, Middle Ear Infection, Cough, DI for Sinusitis Additional Instructions: * No sign of bacterial infection. Likely viral. Virus can take 7-14 days to run their course *Nasal saline and bulb syringe or nose nelida to remove nasal drainage and help with nasal congestion. Hard to eat, drink, or sleep with nasal congestion so important to keep nose cleaned out. *Monitor Temp, Over the counter Motrin or Tylenol as directed/as needed Tylenol every 4 hours and Motrin every 6 hours (as long as your family doctor has told you that you can take it) for fever or pain. and straight to ER if unable to lower temp less than 101.0 after medication given *Warm salt water gargles may help to soothe the throat *Throat Lozenges *Warm fluids like tea with honey may help to soothe the throat *Sleep elevated *Humidifier/Vaporizer Your throat swab was sent for culture. Those results are typically sent to your primary care. Be sure to follow up in 2-3 days with your family doctor/primary care physician if no improvement so they can review those result and treat if necessary. If you don?t have a primary care doctor, I recommend you get one but in the mean time, you will have to return to a walk in clinic Follow up IMMEDIATELY for new or worsening symptoms or no Noticeable improvement over the next 48-72 hours. 911 for difficulty breathing or swallowing Prescriptions: Amoxicillin [Amoxicillin 875MG Tab] 875 mg PO Q12H #14 tab Transmission Status: Pending to [id number] methylPREDNISolone [Medrol 4mg tab] 4 mg PO DIRECTED #21 tab Transmission Status: Pending to [id number] Referrals: Dieter Rodriguez MD [Primary Care Provider] - As needed Time of Disposition: 11:59 Medical Decision Making - Adriel Inquiry Pt receiving controlled substance: No Adriel was queried for this patient: No Vital Signs: 10/01/21 11:35 Temperature 98.9 F Temperature Source Oral Pulse Rate [Right Brachial] 101 H Respiratory Rate 20 Blood Pressure [Right Arm] 131/86 Blood Pressure Mean [Right Arm] 101 Blood Pressure Source [Right Arm] Automatic Cuff Blood Pressure Position [Right Arm] Sitting 02 Sat by Pulse Oximetry 97 Oxygen Delivery Method Room Air - Lab Data Lab results reviewed: Yes: I reviewed the patient's lab results. Lab Results 10/01/21 11:41: Group A Strep Rapid Negative Orders (Tests/Meds): ORDERS Category Date Time Status Full Resp Panel w/COVID ([facility]) Routine Lab 10/01/21 11:41 Received Strep Screen Confirmation Stat Micro 10/01/21 11:41 Received [facility] UTC HPI - General Stated complaint: sore throat, cough, congestion, fever Time Seen by Provider: 10/01/21 11:48 Mode of Arrival: Ambulatory Source of Information: Patient Limitations: No Limitations Description of Symptoms (Recalled from Triage Doc. by RN): PATIENT C/O COUGH, SORE THROAT, HEADACHE, FATIGUE AND LEFT EAR PAIN X 1 WEEK HEENT Symptoms (Recalled from RN notes): Yes Resp Symptoms (Recalled from RN notes): Yes Skin Symptoms (Recalled from RN notes): No MS Symptoms (Recalled from RN notes): No Functional Status (Recalled from RN notes): WNL - History of Present Illness Provider Complaint: Patient states that she has been having cough, sore throat, pain in left ear, sinus congestion and pressure for about a week that has continued to get worse over the last couple of days so today she came in to get checked out - Related Data Home Medications Medication Instructions Recorded Confirmed Venlafaxine HCl [Effexor Xr] 75 mg PO DAILY 10/01/21 10/01/21 Previous Rx's Medication Instructions Recorded Amoxicillin [Amoxicillin 875MG 875 mg PO Q12H #14 tab 10/01/21 Tab] methylPREDNISolone [M
[2021-10-01 11:55] LABS: Strep Scrn Group A (Rapid) Negative (Negative)
[2021-10-01 12:02] VITALS: BP 131/86; PULSE 101; RESP 20; TEMP 37.2; O2SAT 97
[2021-10-01 15:22] LABS: Coronavirus 19, PCR Detected (NotDetected)
== END 2021-10-01 12:07 | disposition home or self-care (01) ==
PROVIDERS: Emergency Provider Nurse Practitioner; PCP Family Medicine
DX: H66.92 Otitis media, unspecified, left ear (principal)
CPT/HCPCS: 87430; 87581; 87632; 87798; 99212; C9803; G0463; U0003; U0005

== ENCOUNTER → 2021-11-05 16:48 | Outpatient (CLI) | payer BC, SELFPAY ==
[2021-11-05 17:23] LABS: Basophils % 0.5 % (0.1-2.0); Eosinophils % 0.2 % (0.1-12.0); Hematocrit 41.4 % (37.0-47.0); Hemoglobin 13.6 g/dL (12.2-16.2); Lymphocytes # 1.7 K/mm3 (0.7-4.5); Lymphocytes % 23.1 % (10-50); Mean Corpuscular Hemoglobin 28.1 pg (27.0-31.2); Mean Corpuscular Volume 85.2 fl (81-99); Mean Platelet Volume 9.4 fl (7.4-10.4); Monocytes # 0.4 K/mm3 (0.1-1.0); Monocytes % 5.9 % (1.7-9.3); Neutrophils # 5.1 K/mm3 (1.8-7.8); Neutrophils % 70.3 % (37.0-80.0); Platelet Count 275 K/mm3 (142-424); Red Blood Count 4.86 M/mm3 (4.20-5.40); Red Cell Distribution Width 13.8 % (11.5-17.5); White Blood Count 7.3 K/mm3 (4.8-10.8)
[2021-11-05 17:40] LABS: Iron 58 ug/dL (37-170)
[2021-11-05 17:49] LABS: Total Iron Binding Capacity 286 ug/dL (265-497)
[2021-11-05 17:59] LABS: Free Thyroxine Index 2.5 ug/dL (5.93-13.13); T4 (Thyroxine) 8.6 ug/dl (5.53-11.0); Triiodothryronine (T3) Uptake 29 % (23.5-40.5)
[2021-11-05 18:10] LABS: Alanine Aminotransferase 12 U/L (12-78); Albumin Level 4.2 g/dl (3.5-5.0); Albumin/Globulin Ratio 1.7 (1.1-1.8); Alkaline Phosphatase 70 U/L (38-126); Anion Gap 10.1 mEq/L (5-15); Aspartate Amino Transferase 18 U/L (14-36); Blood Urea Nitrogen 10 mg/dl (7-17); Calcium 9.4 mg/dl (8.4-10.2); Carbon Dioxide 24 mmol/L (22.0-30.0); Chloride 108 mmol/L (98-107); Estimated Glomerular Filt Rate 100 ml/min (>60); GFR (African American) 121 ML/MIN (>60); Globulin 2.5 g/dL (1.3-3.2); Glucose 87 mg/dl (74-100); Potassium 4.1 mmoL/L (3.5-5.1); Sodium 138 mmol/L (136-145); Total Protein,Serum 6.7 g/dl (6.3-8.2)
[2021-11-05 18:13] LABS: Thyroid Stimulating Hormone 0.61 uIU/mL (0.465-4.68)
[2021-11-05 18:28] LABS: Bilirubin,Total < 0.1 mg/dl (0.2-1.3)
[2021-11-05 19:01] LABS: Vitamin B12 305 pg/mL (239-931)
[2021-11-13 17:08] LABS: 1,25 Dihydroxy Vitamin D 51 pg/mL (.); 1,25-Dihydroxy, Vitamin D-2 <10 pg/mL (.); 1,25-Dihydroxy, Vitamin D-3 51 pg/mL (.)
== END ==
PROVIDERS: Visit Provider Nurse Practitioner Psychiatric/Mental Health
DX: Z00.00 Encounter for general adult medical examination without abnormal findings (principal); Z79.899 Other long term (current) drug therapy
CPT/HCPCS: 36415; 80053; 82607; 82652; 83036; 83540; 83550; 84436; 84443; 84479; 85025

== ENCOUNTER 2022-01-19 16:22 | Emergency (ER) | payer BC, SELFPAY ==
[2022-01-19 16:30] VITALS: BP 127/76; PULSE 91; RESP 18; TEMP 36.9; O2SAT 97; BMI 37.4
[2022-01-19 16:43] LABS: Apearance,Urine Cloudy (Clear); Bilirubin,Urine Negative (Negative); Blood, Urine Trace (Negative); Color,Urine Yellow (Yellow); Glucose,Urine (UA) Negative (Negative); Ketones,Urine Negative (Negative); PH,Urine 6.5 (5.0-8.5); Protein,Urine Negative (Negative); Specific Gravity, Urine >= 1.030 (1.005-1.030); UTC Leukocyte Esterase,Urine 2+ (Negative); UTC Nitrate,Urine Negative (Negative); Urobilinogen,Urine 0.2 EU/dl (0.2)
--- NOTE | 2022-01-19 16:52 | EXP.UTC ---
Discharge Plan Disposition Patient Disposition: Home, Self-Care Condition: Good Prescriptions Prescriptions: New phenazopyridine 200 mg Tablet 200 mg PO TID 2 Days Qty: 6 0RF sulfamethoxazole-trimethoprim [Bactrim DS] 800-160 mg Tablet 1 tab PO BID Qty: 14 0RF ondansetron 4 mg Tablet,Disintegrating 4 mg PO Q8H PRN (Reason: Nausea) Qty: 20 0RF No Action venlafaxine [Effexor XR] 150 mg capsule,extended release 24hr 150 mg PO DAILY aripiprazole [Abilify] 5 mg tablet 5 mg PO QHS Referrals Follow up/Referrals: Dieter Rodriguez MD [Primary Care Provider] - See instructions Activity Restrictions/Add. Instructions Additional Instructions/Restrictions: Drink plenty of fluids. Take tylenol or ibuprofen for pain or fever. Take the medications as directed. Follow up with your regular doctor. GO TO THE ER FOR ANY WORSENING SYMPTOMS The pyridium will make your urine turn orange, this is an expected side effect. It will stain your clothes if it comes into contact with them. We will culture the urine. That will tell what bacteria is causing your infection and which antibiotics will treat it best. Sometimes the first antibiotic we prescribe turns out to not work against different bacteria. So, make sure you follow up within 3 days if you are not getting better. Clinical Impressions Clinical Impression: UTI (urinary tract infection) Instructions Patient Instructions: Urine Culture, DI for Urinary Tract Infection (UTI), Phenazopyridine Discharge ED Provider: Jovanny Muller [facility] General Stated complaint: possible UTI Mode of Arrival: Ambulatory Source of Information: Patient Limitations: No Limitations Time Seen by Provider: 01/19/22 16:52 Description of Symptoms (Recalled from Triage Doc. by RN): PATIENT C/O BURNING WITH URINATION X 3 DAYS HEENT Symptoms (Recalled from RN notes): No Resp Symptoms (Recalled from RN notes): No Skin Symptoms (Recalled from RN notes): No MS Symptoms (Recalled from RN notes): No Functional Status (Recalled from RN notes): WNL History of Present Illness Provider Complaint: She states that for the past 3 days she has had low back pain, chills, malaise, dysuria, and urinary frequency. Related Data Home Medications Medication Instructions Recorded Confirmed aripiprazole 5 mg tablet (Abilify) 5 mg PO QHS Depression 01/19/22 01/19/22 venlafaxine 150 mg 150 mg PO DAILY Depression 01/19/22 01/19/22 capsule,extended release 24 hr (Effexor XR) Previous Rx's Medication Instructions Recorded ondansetron 4 mg disintegrating 4 mg PO Q8H PRN Nausea #20 tabs 01/19/22 tablet phenazopyridine 200 mg tablet 200 mg PO TID 2 days #6 tabs 01/19/22 sulfamethoxazole 800 1 tab PO BID #14 tabs 01/19/22 mg-trimethoprim 160 mg tablet (Bactrim DS) Allergies Allergy/AdvReac Type Severity Reaction Status Date / Time No Known Allergies Allergy Verified 12/03/21 14:35 Worker's Comp Is this a Worker's Comp case?: No PFSH PFS Medical History Anxiety Depression Recurrent major depression resistant to treatment Urinary tract infection Surgical History History of cholecystectomy Social History Smoking Status: Never smoker second hand exposure: No alcohol intake: never counseling provided: provider counseling substance use type: denies use current occupational status: other Travel in the last 8 weeks: None household members: spouse housing: house number of children: 1 current occupational exposures/hazards: No ROS Obtained: Yes All systems reviewed & no additional complaints except as documented Constitutional Constitutional: Reports system reviewed and no additional complaints, except as documented, Denies chills and Denies fever(s) Eyes Eyes: Denies eye disch
[2022-01-19 17:16] VITALS: BP 127/76; PULSE 91; RESP 18; TEMP 36.9; O2SAT 97
== END 2022-01-19 17:20 | disposition home or self-care (01) ==
PROVIDERS: Emergency Provider Nurse Practitioner Family; PCP Family Medicine
DX: N39.0 Urinary tract infection, site not specified (principal); R11.2 Nausea with vomiting, unspecified; F32.9 Major depressive disorder, single episode, unspecified; F41.9 Anxiety disorder, unspecified; Z79.899 Other long term (current) drug therapy
CPT/HCPCS: 81003; 87086; 87088; 87186; 99213; G0463

== ENCOUNTER 2022-02-14 09:31 | Emergency (ER) | payer BC, SELFPAY ==
[2022-02-14 10:30] VITALS: BP 124/82; PULSE 96; RESP 17; TEMP 37.1; O2SAT 98; BMI 38.0
[2022-02-14 10:34] LABS: UTC Influenza A Antigen Negative (Negative); UTC Strep Screen (Rapid) Negative (Negative)
[2022-02-14 10:35] LABS: UTC Influenza B Antigen Negative (Negative)
--- NOTE | 2022-02-14 10:44 | EXP.UTC ---
Discharge Plan Disposition Patient Disposition: Home, Self-Care Condition: Good Prescriptions Prescriptions: New amoxicillin 875 mg tablet 875 mg PO Q12H Qty: 20 0RF fluticasone propionate [Flonase Allergy Relief] 50 mcg/actuation spray,suspension 1 spray intranasal DAILY Qty: 16 0RF Rx Instructions: administer into each nostril No Action aripiprazole [Abilify] 10 mg tablet 10 mg PO QHS Qty: 30 1RF venlafaxine [Effexor XR] 75 mg capsule,extended release 24hr 75 mg PO .COMPLEX Qty: 30 0RF Rx Instructions: 75 mg PO take daily with 150mg capsule; total dose is 225mg daily venlafaxine [Effexor XR] 150 mg capsule,extended release 24hr 150 mg PO DAILY phenazopyridine 200 mg Tablet 200 mg PO TID 2 Days Qty: 6 0RF sulfamethoxazole-trimethoprim [Bactrim DS] 800-160 mg Tablet 1 tab PO BID Qty: 14 0RF ondansetron 4 mg Tablet,Disintegrating 4 mg PO Q8H PRN (Reason: Nausea) Qty: 20 0RF Referrals Follow up/Referrals: Dieter Rodriguez MD [Primary Care Provider] - See instructions Activity Restrictions/Add. Instructions Additional Instructions/Restrictions: *Monitor Temp, Over the counter Motrin or Tylenol as directed/as needed Tylenol every 4 hours and Motrin every 6 hours (as long as your family doctor has told you that you can take it) for fever or pain. and straight to ER if unable to lower temp less than 101.0 after medication given *Warm salt water gargles may help to soothe the throat *Throat Lozenges? *Warm fluids like tea with honey may help to soothe the throat? *Sleep elevated *Humidifier/Vaporizer *Flonase 2 sprays in each nostril daily but be aware that it may take 2-3 days before you notice improvement Your throat swab was sent for culture. Those results are typically sent to your primary care. Be sure to follow up in 2-3 days with your family doctor/primary care physician if no improvement so they can review those result and treat if necessary. If you don?t have a primary care doctor, I recommend you get one but in the mean time, you will have to return to a walk in clinic Follow up IMMEDIATELY for new or worsening symptoms or no Noticeable improvement over the next 48-72 hours. 911 for difficulty breathing or swallowing You were tested for today for COVID19 your test result should be back in the next 24-48 hours, you may check your results on the [facility] My Health Portal Clinical Impressions Clinical Impression: Otitis media Stand Alone Forms Stand Alone Forms: Work/School Release Instructions Patient Instructions: Middle Ear Infection, Middle Ear Infections (Alternative Therapy) Discharge ED Provider: Elsi Tellez [facility] HPI General Stated complaint: Sore throat,cough,congestion Mode of Arrival: Ambulatory Source of Information: Patient Limitations: No Limitations Time Seen by Provider: 02/14/22 10:44 Description of Symptoms (Recalled from Triage Doc. by RN): pt to [facility] with sore throat, congestion, cough and fatigue x 3 days HEENT Symptoms (Recalled from RN notes): Yes (sore throat) Resp Symptoms (Recalled from RN notes): Yes (congestion,cough) Skin Symptoms (Recalled from RN notes): No MS Symptoms (Recalled from RN notes): No Functional Status (Recalled from RN notes): WDL History of Present Illness Provider Complaint: Patient states that she has been having sore throat, cough, pain in her ears, nasal congestion and cough States that today she was feeling worse and worried that she may have flu or strep throat Related Data Home Medications Medication Instructions Recorded Confirmed venlafaxine 150 mg 150 mg PO DAILY Depression 01/19/22 02/01/22 capsule,extended release 24 hr (Effexor XR) Previous Rx's Medication Instructions Recorded ondansetron 4 mg disintegrating 4 mg PO Q8H PRN Nausea #20 tabs 01/19/22 tablet phenazopyridine 200 mg tablet 200 mg PO TID 2 days #6 tabs 01/19/22 sulfamethoxazole 800 1 tab PO B
[2022-02-14 11:12] LABS: Adenovirus,PCR Not Detected (NotDetected); Bordetella Pertussis Not Detected (NotDetected); Chlamydophila Pneumoniae, PCR Not Detected (NotDetected); Coronavirus 19, PCR Not Detected (NotDetected); Coronavirus 229E Not Detected (NotDetected); Coronavirus NL63 Not Detected (NotDetected); Coronavirus OC43 Not Detected (NotDetected); Coronovirus HKU1,PCR Not Detected (NotDetected); Human Metapneumovirus Not Detected (NotDetected); Influenza A, PCR Not Detected (NotDetected); Influenza AH1, 2009 Not Detected (NotDetected); Influenza AH1, PCR Not Detected (NotDetected); Influenza AH3,PCR Not Detected (NotDetected); Influenza B, PCR Not Detected (NotDetected); Mycoplasma Pneumoniae, PCR Not Detected (NotDetected); Parainfluenza 2, PCR Not Detected (NotDetected); Parainfluenza 3, PCR Not Detected (NotDetected); Parainfluenza 4, PCR Not Detected (NotDetected); Respiratory Syncytial Virus Not Detected (NotDetected); Rhinovirus/Enterovirus Not Detected (NotDetected)
[2022-02-14 11:32] VITALS: BP 121/76; PULSE 89; RESP 17; TEMP 37.1; O2SAT 98
[2022-02-14 13:48] LABS: Parainfluenza 1, PCR Detected (NotDetected)
== END 2022-02-14 11:33 | disposition home or self-care (01) ==
PROVIDERS: Emergency Provider Nurse Practitioner; PCP Family Medicine
DX: H66.90 Otitis media, unspecified, unspecified ear (principal)
CPT/HCPCS: 87581; 87632; 87798; 87804; 87880; 99212; C9803; G0463; U0003; U0005

== ENCOUNTER 2023-05-12 23:03 | Outpatient (CLI) | payer BC, SELFPAY ==
[2023-05-12 17:17] LABS: Basophils # 0.1 K/mm3 (0-0.2); Basophils % 0.6 % (0.1-2.0); Eosinophils # 0.1 K/mm3 (0.0-0.4); Eosinophils % 1.5 % (0.1-12.0); Hematocrit 43.5 % (37.0-47.0); Hemoglobin 14.7 g/dL (12.2-16.2); Lymphocytes # 2.1 K/mm3 (0.7-4.5); Mean Corpuscular HGB Conc 33.8 g/dL (31.8-35.4); Mean Corpuscular Hemoglobin 28.5 pg (27.0-31.2); Mean Corpuscular Volume 84.4 fl (81-99); Mean Platelet Volume 9.7 fl (7.4-10.4); Monocytes # 0.4 K/mm3 (0.1-1.0); Monocytes % 4.9 % (1.7-9.3); Neutrophils # 5.9 K/mm3 (1.8-7.8); Platelet Count 261 K/mm3 (142-424); Red Blood Count 5.15 M/mm3 (4.20-5.40); Red Cell Distribution Width 13.9 % (11.5-17.5); White Blood Count 8.6 K/mm3 (4.8-10.8)
[2023-05-12 17:37] LABS: Hemoglobin A1C 5.2 % (4.0-6.0)
[2023-05-12 18:24] LABS: Alanine Aminotransferase 14 U/L (12-78); Albumin Level 4.4 g/dl (3.5-5.0); Albumin/Globulin Ratio 1.6 (1.1-1.8); Alkaline Phosphatase 64 U/L (38-126); Anion Gap 13.3 mEq/L (5-15); Aspartate Amino Transferase 19 U/L (14-36); Bilirubin,Total 0.4 mg/dl (0.2-1.3); Blood Urea Nitrogen 7 mg/dl (7-17); Calcium 9.3 mg/dl (8.4-10.2); Carbon Dioxide 24 mmol/L (22.0-30.0); Chloride 107 mmol/L (98-107); Estimated Glomerular Filt Rate 99 ml/min (>60); GFR (African American) 120 ML/MIN (>60); Globulin 2.8 g/dL (1.3-3.2); Glucose 81 mg/dl (74-100); Potassium 4.3 mmoL/L (3.5-5.1); Sodium 140 mmol/L (136-145); Total Protein,Serum 7.2 g/dl (6.3-8.2)
[2023-05-12 18:38] LABS: Iron 65 ug/dL (37-170)
[2023-05-12 18:42] LABS: Free Thyroxine Index 3.4 ug/dL (5.93-13.13); T4 (Thyroxine) 10.6 ug/dl (5.53-11.0); Triiodothryronine (T3) Uptake 32 % (23.5-40.5)
[2023-05-12 18:49] LABS: Total Iron Binding Capacity 316 ug/dL (265-497)
[2023-05-12 18:56] LABS: Thyroid Stimulating Hormone 1.15 uIU/mL (0.465-4.68)
[2023-05-12 19:16] LABS: Vitamin B12 294 pg/mL (239-931)
[2023-05-13 08:34] LABS: Thyroid Peroxidase Antibodies <9 IU/mL (0-34)
[2023-05-22 19:25] LABS: 1,25 Dihydroxy Vitamin D 58 pg/mL (.); 1,25-Dihydroxy, Vitamin D-2 <10 pg/mL (.); 1,25-Dihydroxy, Vitamin D-3 57 pg/mL (.)
== END 2023-05-12 23:59 ==
LOC: LAB.DROPOF 23:06
PROVIDERS: PCP Nurse Practitioner Psychiatric/Mental Health; Visit Provider Nurse Practitioner Psychiatric/Mental Health
DX: R53.83 Other fatigue (principal); E66.9 Obesity, unspecified; Z68.39 Body mass index [BMI] 39.0-39.9, adult; Z79.899 Other long term (current) drug therapy
CPT/HCPCS: 80053; 82607; 82652; 83036; 83540; 83550; 84436; 84443; 84479; 85025; 86376

== ENCOUNTER 2024-05-07 13:25 | Outpatient (CLI) | payer BC, SELFPAY ==
[2024-05-07 13:55] LABS: Chol/HDL Ratio 4.5 (1-3.5); Cholesterol 167 mg/dl (140-200); HDL Cholesterol 37 mg/dl (40-60); Triglycerides 77 mg/dl (30-150); VLDL Cholesterol 15 mg/dL (0-40)
[2024-05-07 14:06] LABS: Direct LDL Cholesterol 114.57 mg/dL (100-129)
[2024-05-07 14:14] LABS: Free Thyroxine Index 2.7 ug/dL (5.93-13.13); T4 (Thyroxine) 8.5 ug/dl (5.53-11.0); Triiodothryronine (T3) Uptake 32 % (23.5-40.5)
[2024-05-07 14:28] LABS: Thyroid Stimulating Hormone 0.93 uIU/mL (0.465-4.68)
[2024-05-07 14:45] LABS: Vitamin B12 260 pg/mL (239-931)
[2024-05-07 15:07] LABS: Iron 88 ug/dL (37-170)
[2024-05-07 15:16] LABS: Total Iron Binding Capacity 318 ug/dL (265-497)
[2024-05-08 08:28] LABS: Thyroid Peroxidase Antibodies <9 IU/mL (0-34)
[2024-05-16 03:38] LABS: 1,25 Dihydroxy Vitamin D 39 pg/mL (.); 1,25-Dihydroxy, Vitamin D-2 <10 pg/mL (.); 1,25-Dihydroxy, Vitamin D-3 39 pg/mL (.)
== END 2024-05-07 23:59 | disposition home or self-care (01) ==
LOC: LAB.DROPOF 13:26
PROVIDERS: PCP Nurse Practitioner Psychiatric/Mental Health; Visit Provider Nurse Practitioner Psychiatric/Mental Health
DX: Z00.00 Encounter for general adult medical examination without abnormal findings (principal); R53.83 Other fatigue
CPT/HCPCS: 80061; 82607; 82652; 83540; 83550; 84436; 84443; 84479; 86376

== ENCOUNTER 2024-05-17 16:41 | Emergency (ER) | payer BC, SELFPAY ==
--- NOTE | 2024-05-17 16:45 | XR_ITS ---
PROCEDURE INFORMATION: Exam: XR Left Foot Exam date and time: 05/17/2024 4:48 PM Age: 29 years old Clinical indication: Pain; Foot; Left; Additional info: Pain, no injury. Pain at first digit, mtp joint TECHNIQUE: Imaging protocol: Radiologic exam of the left foot. Views: 3 or more views. COMPARISON: CR [id number] XR foot LT min 3V 04/28/2018 7:53 PM FINDINGS: Bones/joints: There is a hallux valgus deformity. Multiple views were obtained. The osseous structures appear intact with no evidence of acute fracture, dislocation, or malalignment. Joint spaces are preserved. No abnormal bone density or destructive lesions are noted. Soft tissues: Soft tissue swelling is observed, and further clinical correlation is advised. IMPRESSION: At the time of imaging, the skeletal radiograph demonstrates no acute osseous abnormalities but does show soft tissue swelling.
[2024-05-17 17:28] VITALS: BP 142/88; PULSE 87; RESP 16; TEMP 36.6; O2SAT 98; BMI 39.9
--- NOTE | 2024-05-17 17:52 | ED_ITS ---
Discharge Plan Disposition Patient Disposition: Home, Self-Care Condition: Good Prescriptions Prescriptions: New ibuprofen [IBU] 800 mg tablet 800 mg PO Q8HP PRN (Reason: Moderate Pain) Qty: 30 0RF No Action Vraylar 1.5 mg capsule 1.5 mg PO DAILY Qty: 90 1RF vilazodone [Viibryd] 40 mg tablet 40 mg PO DAILY Qty: 90 1RF Rx Instructions: must administer with a meal/food fluticasone propionate [Flonase Allergy Relief] 50 mcg/actuation spray,suspension 1 spray intranasal DAILY Qty: 16 0RF Rx Instructions: administer into each nostril Referrals Follow up/Referrals: Provider,Referral, [Primary Care Provider] - See instructions Shakila Traore DPM [Staff Physician] - See instructions Activity Restrictions/Add. Instructions Additional Instructions/Restrictions: Rest the extremity, Elevate the extremity as tolerated while you are resting. Take ibuprofen for pain. I sent in a prescription to your pharmacy. Follow up with Dr. Traore (podiatry). I put in a referral but you need to call her office and schedule an appointment. Follow up with your regular doctor. GO TO THE ER FOR ANY WORSENING SYMPTOMS Clinical Impressions Clinical Impression: Left foot pain Stand Alone Forms Stand Alone Forms: Work/School Release Instructions Patient Instructions: DI for Metatarsalgia, DI for Foot Pain, Ibuprofen Print Language Print Language: Togolese Discharge ED Provider: Jovanny Muller [facility] [place] HPI General Stated complaint: LT foot pain, no injury Mode of Arrival: Ambulatory Source of Information: Patient Limitations: No Limitations Time Seen by Provider: 05/17/24 17:41 Description of Symptoms (Recalled from Triage Doc. by RN): Reports left foot pain since Monday. HEENT Symptoms (Recalled from RN notes): No Resp Symptoms (Recalled from RN notes): No Skin Symptoms (Recalled from RN notes): No MS Symptoms (Recalled from RN notes): Yes Functional Status (Recalled from RN notes): wnl Related Data Previous Rx's ?Medication ?Instructions ?Recorded fluticasone propionate 50 1 spray intranasal DAILY #16 grams 02/14/22 mcg/actuation nasal spray,suspension (Flonase Allergy Relief) cariprazine 1.5 mg capsule 1.5 mg PO DAILY #90 caps 05/07/24 (Vraylar) vilazodone 40 mg tablet (Viibryd) 40 mg PO DAILY #90 tabs 05/07/24 ibuprofen 800 mg tablet (IBU) 800 mg PO Q8HP PRN Moderate Pain 05/17/24 #30 tabs Allergies Allergy/AdvReac Type Severity Reaction Status Date / Time No Known Allergies Allergy Verified 04/06/24 19:05 Worker's Comp Is this a Worker's Comp case?: No [facility] Disclaimer: The information contained in this section may have been updated after the patient was seen, as this information can be updated by other users. Medical History Anxiety Depression Recurrent major depression resistant to treatment Urinary tract infection Surgical History History of cholecystectomy Social History Smoking Status: Never smoker second hand exposure: No alcohol intake: never counseling provided: provider counseling substance use type: denies use current occupational status: other Travel in the last 8 weeks: None household members: spouse housing: house number of children: 1 current occupational exposures/hazards: No Have you lived/traveled outside [place] in past 30 days?: No Contact w/someone who lives/traveled outside [place] past 30 days?: No Exposure to someone with infectious disease in past 14 days?: Yes Do you have a fever (greater than 100.4 F or 38 C)?: No Have you tested positive for COVID-19: No Exposed to someone with COVID-19 in past 14 days?: Yes Do you have a sore throat?: No Do you have a cough?: No Do you have any weakness?: No Do you have any diarrhea?: No Are you experiencing any unusual bleeding?: No Do you have any muscle aches/pain?: No Do you have any abdominal pain?: No Are you experiencing loss of taste or smell?: No ROS Obtained: Yes All systems reviewed & no additional complaints except as documented Constitutional Constitutional: Denies chills and Denies fever(s) Eyes Eyes: Denies eye discharge ENT Ears, Nose, Mouth, and Throat: Denies dizziness, Denies otalgia and Denies sore throat Cardiovascular Cardiovascular: Denies chest pain Respiratory Respiratory: Denies shortness of breath, Denies chest congestion, Denies cough, Denies stridor and Denies wheezing Gastrointestinal Gastrointestingal: Denies nausea or vomiting Musculoskeletal Musculoskeletal: Reports system reviewed and no additional complaints, except as documented and Denies arthralgias Integumentary/Breasts Skin/Breast: Denies rash Neurologic Neurologic: Denies dizziness and Denies paresthesias Allergic/Immunologic Allergic/Immunologic: Denies wheezing Physical Exam General General appearance: alert and in no apparent distress Head Head exam: atraumatic, normocephalic and normal inspection Eye Eye exam: Present normal appearance, PERRL and EOMI ENT ENT exam: Present normal exam, normal oropharynx, mucous membranes moist, TM's normal bilaterally and normal external ear exam Neck Neck exam: Present normal inspection, full ROM and trachea midline; Absent meningismus or lymphadenopathy Chest Chest inspection: Present normal inspection and symmetric chest wall rise; Ab sent tenderness Respiratory Respiratory exam: Present normal lung sounds bilaterally; Absent respiratory distress Cardiovascular Cardiovascular exam: Present regular rate and normal rhythm; Absent JVD Abdominal Exam Abdominal exam: Present soft and normal bowel sounds; Absent distention, tenderness or guarding Extremities Exam Extremities exam: Present normal inspection, full ROM and normal capillary refill; Absent calf tenderness Back Exam Back exam: Present normal inspection; Absent tenderness Neurological Exam Neurological exam: Present alert and oriented X3 Psychiatric Psychiatric exam: Present normal affect and normal mood Skin Skin exam: Present warm, dry, intact and normal color Lymphatic Lymphatic Findings: no adenopathy Medical Decision Making Medical Records Medical records reviewed: No I reviewed the patient's medical records. Screening: Per USPSTF and CDC recommendations, given the prevalence of disease in our region, it is our hospital?s policy to screen for HIV and viral Hepatitis for all patients aged 18 and over and those with ongoing risk factors. Adriel Inquiry Pt receiving controlled substance: No Vital Signs: 05/17/24 17:28 Temperature 97.9 F Temperature Source Oral Pulse Rate [Radial] 87 Respiratory Rate 16 Blood Pressure [Right Arm] 142/88 H Blood Pressure Mean [Right Arm] 106 Blood Pressure Source [Right Arm] Automatic Cuff Blood Pressure Position [Right Arm] Sitting 02 Sat by Pulse Oximetry 98 Oxygen Delivery Method Room Air Lab Data Lab results reviewed: Yes I reviewed the patient's lab results. Orders (Tests/Meds): ORDERS Category Date Time Status XR foot LT min 3V Stat Exams 05/17/24 16:45 Completed
[2024-05-17 18:23] VITALS: BP 142/88; PULSE 87; RESP 16; TEMP 36.7; O2SAT 98
== END 2024-05-17 18:24 | disposition home or self-care (01) ==
PROVIDERS: Emergency Provider Nurse Practitioner Family
DX: M79.672 Pain in left foot (principal)
CPT/HCPCS: 73630; 99212; G0381